=== PATIENT | female | born 1980 | race Caucasian/White ===

== ENCOUNTER → 2016-08-15 | Day surgery (SDC) | payer SELFPAY ==
[2016-08-08 17:03] VITALS: BMI 22.3
[~2016-08-15] MED LIST: ACETAMINOPHEN 325 MG TABLET (FP) PO PRN; ACETAMINOPHEN INJECTION 100 ML IVPB ONE; BUPIVACAINE HCL/PF 0.25% (2.5MG/ML) 10 ML VIAL STI ONE; BUPIVACAINE HCL/PF 2.5 MG/ML - 30 ML VIAL IJ ONE; CEFAZOLIN (PRE-DOCKED) 50 ML IVPB SCH; DESFLURANE GAS 240 ML BOTTLE IH ONE; DEXAMETHASONE SOD PHOSPHATE 4 MG/1 ML VIAL ONE; DOXYCYCLINE HYCLATE 100 MG CAPSULE PO SCH; ENOXAPARIN NA (PORCINE) 40 MG/0.4 ML DISP.SYRIN SQ SCH; EPINEPHrine/PF 1 MG/1 ML (1:1,000) AMPULE ONE; GENTAMICIN SO4 80 MG/2 ML VIAL ONE; HEPARIN NA (PORCINE) 5,000 UNITS/ML 1ML VIAL SQ ONE; HYDROmorphone HCL CARPU-JECT 2 MG/1 ML DISP.SYRIN IVPB PRN; HYDROmorphone HCL/PF 1 MG/ML VIAL (FOR PYXIS CHARGING ONLY) ONE; LACTATED RINGERS SOLUTION 1,000 ML IV SCH; LIDOCAINE 1%-EPI 1:100,000 30 ML MDV IJ ONE; LIDOCAINE 1%/EPI 1:100000 (20 ML MULTI DOSE VIAL) INF ONE; LIDOCAINE HCL 1%, 10 MG/ML (20ML VIAL) ONE; LIDOCAINE HCL 2% JELLY (5 ML/TUBE) ONE; LIDOCAINE HCL/PF 2% SDV 5ML VIAL ONE; MIDAZOLAM HCL 2 MG/2 ML SINGLE DOSE VIAL ONE; ONDANSETRON 4 MG/2 ML VIAL IVPB PRN; ONDANSETRON 4 MG/2 ML VIAL IVPUSH PRN; ONDANSETRON 4 MG/2 ML VIAL ONE; PROMETHAZINE HCL 25 MG/1 ML VIAL IVPUSH ONE; PROMETHAZINE HCL 25 MG/1 ML VIAL ONE; PROPOFOL 20 ML ONE; ROCURONIUM BROMIDE 50 MG/5 ML VIAL ONE; SUCCINYLCHOLINE CHLORIDE 200 MG/10 ML VIAL ONE; ZOLPIDEM TARTRATE 5 MG TABLET PO PRN; ceFAZolin SODIUM 1 GM VIAL ONE; oxyCODONE HCL 5 MG TABLET PO PRN
[2016-08-16 00:25] VITALS: BP 100/64; PULSE 98; TEMP 98.8
--- NOTE | 2016-08-17 11:21 | PATH ---
Surgical Pathology Report Patient Name: NELIA NG [facility]. Rec. #: [id number] /Age/Gender: 1980 (Age: 36) / F Account: [id number] Location: [facility] AMBULATORY Taken: 08/15/2016 Received: 08/15/2016 Reported: 08/17/2016 Physicians: Mary Guerrier M.D. Specimen(s) Received A: LEFT BREAST EXPLANT B: RIGHT BREAST EXPLANT C: LEFT BREAST SKIN D: RIGHT BREAST SKIN E: LEFT ABDOMINAL TISSUE AND FAT F: RIGHT ABDOMINAL TISSUE AND FAT Clinical History Cosmetic Final Diagnosis A. 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 B. MOBILE MANAGER, RIGHT BREAST, REMOVAL: BREAST IMPLANT (GROSS ONLY). C. SKIN, LEFT BREAST, EXCISION: UNREMARKABLE SKIN (GROSS ONLY). D. SKIN, RIGHT BREAST, EXCISION: UNREMARKABLE SKIN (GROSS ONLY). E. SKIN AND SUBCUTANEOUS ADIPOSE TISSUE, LEFT ABDOMEN, ABDOMINOPLASTY: UNREMARKABLE SKIN AND ADIPOSE TISSUE (GROSS ONLY). F. SKIN AND SUBCUTANEOUS ADIPOSE TISSUE, RIGHT ABDOMEN, ABDOMINOPLASTY: UNREMARKABLE SKIN AND ADIPOSE TISSUE (GROSS ONLY). Electronically Signed Kemal Reid M.D. Gross Description A. Received fresh labeled "left breast explant," is an 11.0 x 9.5 x 4.5 cm device, consistent with a breast implant. No soft tissue is present. No sections are submitted, gross only. B. Received fresh labeled "right breast explant," is 11.0 x 9.5 x 4.5 cm device, consistent with a breast implant. No soft tissue is present. No sections are submitted, gross only. C. Received in formalin labeled "left breast skin," are 2 nixon, irregular, unoriented skin shaves measuring 5.3 x 1.4 cm and 16.0 x 2.0 cm. The epidermal surface as are unremarkable. No sections are submitted, gross only. D. Received in formalin labeled "right breast skin," is a 14.0 x 1.7 cm nixon, irregular, unoriented skin shave. The epidermal surface is unremarkable. No sections are submitted, gross only. E. Received in formalin labeled "left abdominal tissue and fat," is a 499 g, 21.0 x 15.0 x 2.0 cm aggregate of multiple irregular, unoriented portions of soft tissue. The larger portions are surfaced by nixon, unremarkable skin. Sectioning reveals homogeneous yellow, lobulated fat. No lesions are identified. No sections are submitted, gross only. F. Received in formalin labeled "right abdominal tissue and fat," is a 507 g, 20.5 x 15.5 x 3.2 cm nixon, triangular, unremarkable portion of skin with underlying soft tissue. Sectioning reveals homogeneous yellow, lobulated fat. No lesions are identified. No sections are submitted, gross only. 08/16/2016 [facility]08/16/2016
== END | disposition home or self-care (01) ==
LOC: FASU 06:16
PROVIDERS: ATTEND Surgery
PROC: 0H0V0JZ Alteration of Bilateral Breast with Synthetic Substitute, Open Approach (ICD-10-PCS; principal; 2016-08-15 09:07)
PROC: 0J080ZZ Alteration of Abdomen Subcutaneous Tissue and Fascia, Open Approach (ICD-10-PCS; 2016-08-15 09:07)
PROC: 0J083ZZ Alteration of Abdomen Subcutaneous Tissue and Fascia, Percutaneous Approach (ICD-10-PCS; 2016-08-15 09:07)
DX: Z41.1 Encounter for cosmetic surgery (principal)
CPT/HCPCS: 84703; 88300-TC; 94760; J1644